=== PATIENT | male | born 1990 | race Two or more races ===

== ENCOUNTER 2017-08-11 22:48 | Inpatient (IN) | payer MEDICAID ==
[2017-08-11] MEDS: THIAMINE 100 MG TAB PO (21:00)
[2017-08-11] MEDS ORDERED: traZODone 50 MG TAB PO (23:45)
[2017-08-11] MEDS ORDERED: LORazepam 2 MG TAB PO (23:45)
[2017-08-11] MEDS ORDERED: MAALOX 30 ML SUSP *UDC PO (23:45)
[2017-08-11] MEDS ORDERED: MOM 30ML SUSPENSION UDC PO (23:45)
[2017-08-12] MEDS: FOLIC ACID 1 MG TAB PO (10:05)
[2017-08-12] MEDS: THIAMINE 100 MG TAB PO ×2 (10:05→21:48)
[2017-08-12] MEDS: MULTIVITAMINS/MINERALS THERAP 1 TAB PO (10:05)
[2017-08-12] MEDS: ACETAMINOPHEN TAB 650MG DOSE (2X325MG) PO (12:16)
[2017-08-12] MEDS: SERTRALINE HCL 25 MG TABLET PO (12:19)
[2017-08-12] MEDS: INFLUENZA QUADRIVALENT PF VACCINE 0.5ML SYRINGE (90686) IM (16:36)
[2017-08-12] MEDS: BETAMETHASONE VAL 0.1% CR 15 GM TOP (21:00)
[2017-08-12] MEDS: busPIRone 5 MG TAB PO (21:48)
[2017-08-12] MEDS: LISINOPRIL 5 MG TAB PO (21:48)
[2017-08-12] MEDS: traZODone 50 MG TAB PO (21:48)
[2017-08-13] MEDS: INFLUENZA QUADRIVALENT PF VACCINE 0.5ML SYRINGE (90686) IM (09:28)
[2017-08-13] MEDS: MULTIVITAMINS/MINERALS THERAP 1 TAB PO (09:28)
[2017-08-13] MEDS: LISINOPRIL 5 MG TAB PO (09:28)
[2017-08-13] MEDS: THIAMINE 100 MG TAB PO ×2 (09:28→21:43)
[2017-08-13] MEDS: SERTRALINE HCL 25 MG TABLET PO (09:28)
[2017-08-13] MEDS: busPIRone 5 MG TAB PO ×3 (09:28→21:43)
[2017-08-13] MEDS: FOLIC ACID 1 MG TAB PO (09:28)
[2017-08-13] MEDS: BETAMETHASONE VAL 0.1% CR 15 GM TOP ×2 (10:08→21:00)
[2017-08-13 16:50] LABS: HEMATOCRIT 44.9 % (42.0-52.0); HEMOGLOBIN 15.8 g/dl (14.0-18.0); MEAN CORPUSCULAR HEMOGLOBIN 29.9 pg (27.0-33.0); MEAN CORPUSCULAR HGB CONC 35.2 g/dl (32.0-36.5); MEAN CORPUSCULAR VOLUME 84.9 fl (80.0-96.0); PLATELET COUNT, AUTOMATED 240 10^3/uL (150-450); RED BLOOD COUNT 5.29 10^6/uL (4.30-6.10); RED CELL DISTRIBUTION WIDTH 11.8 % (11.5-14.5)
[2017-08-13 17:28] LABS: ANION GAP 4 MEQ/L (8-16); BLOOD UREA NITROGEN 16 MG/DL (7-18); CALCIUM LEVEL 9.2 MG/DL (8.5-10.1); CARBON DIOXIDE LEVEL 33 MEQ/L (21-32); CHLORIDE LEVEL 101 MEQ/L (98-107); CHOLESTEROL LEVEL 209 MG/DL (<200); CHOLESTEROL RISK RATIO 5.097 (<5); CREATININE FOR GFR 0.89 MG/DL (0.70-1.30); GLOMERULAR FILTRATION RATE > 60.0 (>60); GLUCOSE, FASTING 79 MG/DL (70-105); HDL CHOLESTEROL 41 MG/DL (>40); LDL CHOLESTEROL 127.2 MG/DL (<100); NON-HDL-C 168 MG/DL; POTASSIUM SERUM 4.2 MEQ/L (3.5-5.1); SODIUM LEVEL 138 MEQ/L (136-145); THYROID STIMULATING HORMONE 0.671 uIU/ML (0.358-3.740); TRIGLYCERIDES LEVEL 204 MG/DL (<150)
[2017-08-13 17:29] LABS: VITAMIN B12 LEVEL 750 PG/ML (247-911)
[2017-08-13] MEDS: traZODone 50 MG TAB PO (21:43)
[2017-08-13] MEDS: risperiDONE 1 MG TAB PO (21:43)
[2017-08-14] MEDS: FOLIC ACID 1 MG TAB PO (08:51)
[2017-08-14] MEDS: BETAMETHASONE VAL 0.1% CR 15 GM TOP ×2 (08:51→21:00)
[2017-08-14] MEDS: MULTIVITAMINS/MINERALS THERAP 1 TAB PO (08:51)
[2017-08-14] MEDS: LISINOPRIL 5 MG TAB PO (08:51)
[2017-08-14] MEDS: THIAMINE 100 MG TAB PO (08:51)
[2017-08-14] MEDS: busPIRone 5 MG TAB PO ×3 (08:51→21:56)
[2017-08-14] MEDS: GABAPENTIN 300 MG CAP PO ×2 (11:37→21:56)
[2017-08-14] MEDS: SERTRALINE 100 MG TAB PO (21:56)
[2017-08-14] MEDS: ATORVASTATIN 10 MG TAB PO (21:56)
[2017-08-14] MEDS: traZODone 50 MG TAB PO (21:56)
[2017-08-14] MEDS: risperiDONE 1 MG TAB PO (21:56)
[2017-08-15] MEDS: MULTIVITAMINS/MINERALS THERAP 1 TAB PO (09:29)
[2017-08-15] MEDS: BETAMETHASONE VAL 0.1% CR 15 GM TOP ×2 (09:29→21:25)
[2017-08-15] MEDS: GABAPENTIN 300 MG CAP PO ×2 (09:30→21:25)
[2017-08-15] MEDS: busPIRone 5 MG TAB PO (09:30)
[2017-08-15] MEDS: FOLIC ACID 1 MG TAB PO (09:31)
[2017-08-15] MEDS: LISINOPRIL 5 MG TAB PO (09:31)
[2017-08-15] MEDS: ACETAMINOPHEN TAB 650MG DOSE (2X325MG) PO (09:32)
[2017-08-15] MEDS: TOPIRAMATE (TopAMAX) 25 MG TAB PO ×2 (09:54→21:25)
[2017-08-15] MEDS: busPIRone 10 MG TAB PO ×2 (15:35→21:25)
[2017-08-15] MEDS: traZODone 50 MG TAB PO (21:25)
[2017-08-15] MEDS: risperiDONE 1 MG TAB PO (21:25)
[2017-08-15] MEDS: ATORVASTATIN 10 MG TAB PO (21:25)
[2017-08-15] MEDS: SERTRALINE 100 MG TAB PO (21:25)
[2017-08-16] MEDS: BETAMETHASONE VAL 0.1% CR 15 GM TOP ×2 (09:00→21:00)
[2017-08-16] MEDS: FOLIC ACID 1 MG TAB PO (09:24)
[2017-08-16] MEDS: MULTIVITAMINS/MINERALS THERAP 1 TAB PO (09:24)
[2017-08-16] MEDS: TOPIRAMATE (TopAMAX) 25 MG TAB PO ×2 (09:24→21:11)
[2017-08-16] MEDS: GABAPENTIN 300 MG CAP PO ×2 (09:24→21:11)
[2017-08-16] MEDS: LISINOPRIL 5 MG TAB PO (09:25)
[2017-08-16] MEDS: busPIRone 10 MG TAB PO ×3 (09:25→21:11)
[2017-08-16] MEDS: ACETAMINOPHEN TAB 650MG DOSE (2X325MG) PO (10:35)
[2017-08-16] MEDS: SERTRALINE 100 MG TAB PO (21:11)
[2017-08-16] MEDS: ATORVASTATIN 10 MG TAB PO (21:11)
[2017-08-16] MEDS: risperiDONE 1 MG TAB PO (21:11)
[2017-08-16] MEDS: traZODone 50 MG TAB PO (21:11)
[2017-08-17] MEDS: MULTIVITAMINS/MINERALS THERAP 1 TAB PO (08:25)
[2017-08-17] MEDS: LISINOPRIL 5 MG TAB PO (08:25)
[2017-08-17] MEDS: busPIRone 10 MG TAB PO ×3 (08:25→21:44)
[2017-08-17] MEDS: TOPIRAMATE (TopAMAX) 25 MG TAB PO ×2 (08:25→21:44)
[2017-08-17] MEDS: FOLIC ACID 1 MG TAB PO (08:25)
[2017-08-17] MEDS: GABAPENTIN 300 MG CAP PO (08:25)
[2017-08-17] MEDS: BETAMETHASONE VAL 0.1% CR 15 GM TOP ×2 (08:26→21:00)
[2017-08-17] MEDS: ACETAMINOPHEN TAB 650MG DOSE (2X325MG) PO (14:27)
[2017-08-17] MEDS: SERTRALINE 100 MG TAB PO (21:44)
[2017-08-17] MEDS: ATORVASTATIN 10 MG TAB PO (21:44)
[2017-08-17] MEDS: risperiDONE 1 MG TAB PO (21:44)
[2017-08-17] MEDS: traZODone 50 MG TAB PO (21:44)
[2017-08-18] MEDS: BETAMETHASONE VAL 0.1% CR 15 GM TOP ×2 (09:02→20:54)
[2017-08-18] MEDS: MULTIVITAMINS/MINERALS THERAP 1 TAB PO (09:02)
[2017-08-18] MEDS: TOPIRAMATE (TopAMAX) 25 MG TAB PO ×2 (09:02→20:53)
[2017-08-18] MEDS: FOLIC ACID 1 MG TAB PO (09:02)
[2017-08-18] MEDS: busPIRone 10 MG TAB PO ×3 (09:02→20:53)
[2017-08-18] MEDS: LISINOPRIL 5 MG TAB PO (09:05)
[2017-08-18] MEDS: risperiDONE 1 MG TAB PO (20:52)
[2017-08-18] MEDS: ATORVASTATIN 10 MG TAB PO (20:53)
[2017-08-18] MEDS: SERTRALINE 100 MG TAB PO (20:53)
[2017-08-18] MEDS: traZODone 50 MG TAB PO (20:53)
[2017-08-19] MEDS: TOPIRAMATE (TopAMAX) 25 MG TAB PO ×2 (09:44→20:21)
[2017-08-19] MEDS: busPIRone 10 MG TAB PO ×3 (09:44→20:21)
[2017-08-19] MEDS: MULTIVITAMINS/MINERALS THERAP 1 TAB PO (09:44)
[2017-08-19] MEDS: FOLIC ACID 1 MG TAB PO (09:44)
[2017-08-19] MEDS: BETAMETHASONE VAL 0.1% CR 15 GM TOP ×2 (09:44→20:22)
[2017-08-19] MEDS: LISINOPRIL 5 MG TAB PO (09:45)
[2017-08-19 10:08] LABS: VITAMIN B1 LEVEL WHOLE BLOOD 230.3 nmol/L (66.5-200.0)
[2017-08-19] MEDS: ATORVASTATIN 10 MG TAB PO (20:21)
[2017-08-19] MEDS: SERTRALINE 100 MG TAB PO (20:21)
[2017-08-19] MEDS: risperiDONE 1 MG TAB PO (20:21)
[2017-08-19] MEDS: traZODone 50 MG TAB PO (20:21)
[2017-08-19] MEDS: ACETAMINOPHEN TAB 650MG DOSE (2X325MG) PO (21:35)
[2017-08-20] MEDS: BETAMETHASONE VAL 0.1% CR 15 GM TOP ×2 (09:00→21:00)
[2017-08-20] MEDS: MULTIVITAMINS/MINERALS THERAP 1 TAB PO (10:45)
[2017-08-20] MEDS: busPIRone 10 MG TAB PO ×3 (10:45→22:09)
[2017-08-20] MEDS: FOLIC ACID 1 MG TAB PO (10:45)
[2017-08-20] MEDS: TOPIRAMATE (TopAMAX) 25 MG TAB PO ×2 (10:45→22:09)
[2017-08-20] MEDS: LISINOPRIL 5 MG TAB PO (10:47)
[2017-08-20] MEDS: CEPACOL LOZENGE PO ×3 (10:47→22:09)
[2017-08-20] MEDS: NICOTINE 7 MG/24 HR TRANSDERMAL TD (11:15)
[2017-08-20] MEDS: ACETAMINOPHEN TAB 650MG DOSE (2X325MG) PO ×2 (16:02→22:11)
[2017-08-20] MEDS: ATORVASTATIN 10 MG TAB PO (22:09)
[2017-08-20] MEDS: traZODone 100 MG TAB PO (22:09)
[2017-08-20] MEDS: SERTRALINE 100 MG TAB PO (22:09)
[2017-08-20] MEDS: risperiDONE 1 MG TAB PO (22:09)
[2017-08-21] MEDS: CEPACOL LOZENGE PO ×3 (03:13→15:44)
[2017-08-21] MEDS: BETAMETHASONE VAL 0.1% CR 15 GM TOP ×2 (09:00→20:24)
[2017-08-21] MEDS: MULTIVITAMINS/MINERALS THERAP 1 TAB PO (09:07)
[2017-08-21] MEDS: busPIRone 10 MG TAB PO ×3 (09:07→20:24)
[2017-08-21] MEDS: TOPIRAMATE (TopAMAX) 25 MG TAB PO ×2 (09:07→20:24)
[2017-08-21] MEDS: FOLIC ACID 1 MG TAB PO (09:07)
[2017-08-21] MEDS: LISINOPRIL 5 MG TAB PO (09:07)
[2017-08-21] MEDS: NICOTINE 7 MG/24 HR TRANSDERMAL TD (09:07)
[2017-08-21] MEDS: traZODone 100 MG TAB PO (20:24)
[2017-08-21] MEDS: SERTRALINE 100 MG TAB PO (20:24)
[2017-08-21] MEDS: ATORVASTATIN 10 MG TAB PO (20:24)
[2017-08-21] MEDS: risperiDONE 1 MG TAB PO (20:24)
[2017-08-22] MEDS: CEPACOL LOZENGE PO (07:59)
[2017-08-22] MEDS: NICOTINE 7 MG/24 HR TRANSDERMAL TD (07:59)
[2017-08-22] MEDS: TOPIRAMATE (TopAMAX) 25 MG TAB PO (08:00)
[2017-08-22] MEDS: LISINOPRIL 5 MG TAB PO (08:00)
[2017-08-22] MEDS: busPIRone 10 MG TAB PO (08:00)
[2017-08-22] MEDS: BETAMETHASONE VAL 0.1% CR 15 GM TOP (08:00)
[2017-08-22] MEDS: MULTIVITAMINS/MINERALS THERAP 1 TAB PO (08:00)
[2017-08-22] MEDS: FOLIC ACID 1 MG TAB PO (08:00)
== END 2017-08-22 09:10 | DRG 751 ==
LOC: M ED 22:48 → M PSY 08-18 20:42 → M ED INP 23:41 → M PSY 08-12 00:15
DX: F32.3 Major depressive disorder, single episode, severe with psychotic features (principal); I10 Essential (primary) hypertension; R45.851 Suicidal ideations; F43.10 Post-traumatic stress disorder, unspecified; F40.10 Social phobia, unspecified; F10.10 Alcohol abuse, uncomplicated; L40.9 Psoriasis, unspecified; M54.81 Occipital neuralgia; G43.009 Migraine without aura, not intractable, without status migrainosus; J45.909 Unspecified asthma, uncomplicated; Z79.01 Long term (current) use of anticoagulants; Z88.0 Allergy status to penicillin; Z91.018 Allergy to other foods; Z88.6 Allergy status to analgesic agent; Z79.899 Other long term (current) drug therapy